=== PATIENT | female | born 1960 | race Caucasian/White ===

== ENCOUNTER 2021-11-08 14:00 | Outpatient (RCR) | payer BC, OTHER, SELFPAY | END 2021-12-05 07:56 | disposition home or self-care (01) | LOC: PT.CARL 14:00 | PROVIDERS: PCP Internal Medicine; Visit Provider Orthopaedic Surgery | DX: S83.241D Other tear of medial meniscus, current injury, right knee, subsequent encounter (principal) | CPT/HCPCS: 97010; 97014; 97033; 97035; 97110; 97163; 97164; G0283 ==

== ENCOUNTER 2021-12-02 21:02 | Emergency (ER) | payer BC, OTHER, SELFPAY ==
[2021-12-02 21:04] VITALS: BP 133/87; PULSE 84; RESP 17; TEMP 36.7; O2SAT 98; BMI 37.8
--- NOTE | 2021-12-02 21:26 | XR_ITS ---
PROCEDURE INFORMATION: Exam: XR Left Foot Exam date and time: 12/02/2021 9:29 PM Age: 61 years old Clinical indication: Pain; Foot; Left; Additional info: Twisted ankle TECHNIQUE: Imaging protocol: Radiologic exam of the Left foot. Views: 1 or 2 views. COMPARISON: No relevant prior studies available. FINDINGS: Bones/joints: Changes of prior bunionectomy. Spurring along the inferior aspect of the calcaneus. No acute fracture. Soft tissues: Normal. IMPRESSION: No acute fracture. Changes of prior bunionectomy. No overlying soft tissue swelling.
--- NOTE | 2021-12-02 21:26 | XR_ITS ---
PROCEDURE INFORMATION: Exam: XR Left Ankle Exam date and time: 12/02/2021 9:30 PM Age: 61 years old Clinical indication: Pain; Ankle; Left; Additional info: Twisted ankle TECHNIQUE: Imaging protocol: Radiologic exam of the Left ankle. Views: 1 or 2 views. COMPARISON: CR XR FOOT LT 2V 12/02/2021 9:29 PM FINDINGS: Bones/joints: Normal. Soft tissues: Normal. IMPRESSION: No acute findings.
--- NOTE | 2021-12-02 22:34 | HMH.EDLOEX ---
ED Disposition Clinical Impression: Ankle sprain and strain Sprain of foot, left Qualifiers: Encounter type: initial encounter Qualified Code(s): S93.602A - Unspecified sprain of left foot, initial encounter Disposition: Home, Self-Care Condition on Discharge: Good Instructions: DI for Ankle Sprain Additional Instructions: ice and no wt bearing and call pcp and dr morse for follow up Referrals: Diana Sifuentes MD [Primary Care Provider] - Yissel Morse DPM [Staff Physician] - - Critical Care Critical Care Time: No Attestation: On 12/02/21, the high probability of a clinically significant, sudden or life threatening deterioration of the following system(s) required my full and direct attention, intervention and personal management. The time I documented below is in addition to time spent performing reported procedures but includes the following listed in this critical care notation. Medical Decision Making - Medical Records Medical records reviewed: Yes: I reviewed the patient's medical records. - Jose Inquiry Pt receiving controlled substance: No Vital Signs: 12/02/21 21:04 Temperature 98.1 F Temperature Source Oral Pulse Rate [Right] 84 Respiratory Rate 17 Blood Pressure [Right Arm] 133/87 Blood Pressure Mean [Right Arm] 102 02 Sat by Pulse Oximetry 98 Oxygen Delivery Method Room Air - Radiology Data #1 Image(s): Ankle, Foot/Toes Image Reviewed: Yes I have reviewed radiologist's interpretation Preliminary Findings: No Fracture Seen Medical Decision Narrative: no fracture but has pain and dec rom and inability bear wt Lower Extremity Injury HPI - General Chief Complaint: Extremity Injury, Lower Stated Complaint: AO 12/02@1930@home injured L ankle Time Seen by Provider: 12/02/21 22:34 Mode of Arrival: Wheelchair Source of Information: Patient, Spouse, Medical Record Limitations: No Limitations Description of Symptoms (Recalled from ER Triage Doc. by RN): Pt c/o left foot & ankle pain. States she was walking and stepped in a hole and felt her ankle twist and pop . Peripheral pulses and [employer] are WNL. Mild swelling noted to lateral L ankle.She reports she can not bear weight with severe pain. Difficulty moving toes upward. - History of Present Illness HPI Narrative: acute injury lt foot/ankle with popping sd with swelling and inability to bear wt complaint: ankle injury, foot injury Onset (ago): hour(s) Injury: Left: ankle, foot Type of Injury: eversion Place: home Severity: moderate Exacerbating factors: weight bearing Context: walking Associated symptoms: snap/pop sensation, unable to bear weight Other symptoms: none - Related Data Home Medications Medication Instructions Recorded Confirmed Albuterol Sulfate [Albuterol 1 - 2 puff IH Q6HP PRN 12/02/21 12/02/21 Sulfate Hfa] Dulaglutide [Trulicity] 0.75 mg SQ WEEKLY 12/02/21 12/02/21 Empagliflozin [Jardiance] 25 mg PO DAILY 12/02/21 12/02/21 Fluticasone/Vilanterol [Breo 1 puff IH DAILY 12/02/21 12/02/21 Ellipta 100-25 Mcg INH] Furosemide [Furosemide 20mg Tab*] 20 mg PO DAILY 12/02/21 12/02/21 Insulin Aspart [Novolog Flexpen] 20 units SQ TID 12/02/21 12/02/21 Insulin Glargine,Hum.rec.anlog 20 unit SQ DAILY 12/02/21 12/02/21 [Basaglar Kwikpen U-100] Allergies Allergy/AdvReac Type Severity Reaction Status Date / Time liraglutide [From Saxenda] AdvReac Mild injection Verified 12/02/21 21:53 site reaction [facility] History - Hepatitis A Screen Attestation statement:: This patient has been screened for Hepatitis A risk factors. I have reviewed the patient's past medical history: Yes ROS Obtained: Yes All systems reviewed & no additional complaints - Constitutional Constitutional: Denies fever(s) - Eyes Eyes: Denies change in vision - ENT Ears, Nose, Mouth, and Throat: Denies sore throat - Cardiovascular Cardiovascular: Denies chest pain - Respiratory Respiratory: Denies s
[2021-12-02 22:51] VITALS: BP 140/85; PULSE 81; RESP 18; TEMP 36.7; O2SAT 98
== END 2021-12-02 23:04 | disposition home or self-care (01) ==
PROVIDERS: Emergency Provider Emergency Medicine; PCP Internal Medicine
DX: S93.602A Unspecified sprain of left foot, initial encounter (principal); W01.0XXA Fall on same level from slipping, tripping and stumbling without subsequent striking against object, initial encounter; Z79.4 Long term (current) use of insulin; Z79.899 Other long term (current) drug therapy; Z88.8 Allergy status to other drugs, medicaments and biological substances
CPT/HCPCS: 73600; 73620; 99283

== ENCOUNTER 2022-02-06 15:00 | Outpatient (RCR) | payer BC, OTHER, SELFPAY | END 2022-02-12 16:38 | disposition home or self-care (01) | LOC: PT.CARL 15:00 | PROVIDERS: PCP Internal Medicine; Visit Provider Orthopaedic Surgery | DX: S83.241D Other tear of medial meniscus, current injury, right knee, subsequent encounter (principal) | CPT/HCPCS: 97010; 97014; 97110; 97163; G0283 ==

== ENCOUNTER 2023-10-14 03:47 | Emergency (ER) | payer BC, OTHER, SELFPAY ==
[2023-10-14 03:49] VITALS: BP 84/65; PULSE 95; RESP 18; TEMP 36.6; O2SAT 99; BMI 31.7
--- NOTE | 2023-10-14 03:52 | PC.NURSE ---
md at bedside. supplies for eye exam at bedside
--- NOTE | 2023-10-14 03:58 | PC.NURSE ---
Eye box and mann lamp at bedside
--- NOTE | 2023-10-14 04:06 | HMH.EDGENADL ---
Discharge Plan Disposition Patient Disposition: Home, Self-Care Prescriptions Prescriptions: No Action furosemide 20 MG tablet 20 mg PO DAILY albuterol sulfate 8.5 GM HFA aerosol inhaler 1 - 2 puff IH Q6HP PRN (Reason: soa) insulin aspart U-100 100 UNIT/ML insulin pen 20 units SQ TID Patient Comments: ADMINISTER 20 UNITS UNDER THE SKIN THREE TIMES DAILY insulin glargine 100 UNIT/ML insulin pen 20 unit SQ DAILY fluticasone furoate-vilanterol 1 EACH blister with device 1 puff IH DAILY Patient Comments: INHALE 1 PUFF BY MOUTH EVERY DAY empagliflozin 25 MG tablet 25 mg PO DAILY Patient Comments: TAKE 1 TABLET BY MOUTH DAILY. MAKE AN APPOINTMENT. FOR FURTHER REFILLS. 09/24/2021 dulaglutide 0.75 MG/0.5 ML pen injector 0.75 mg SQ WEEKLY Referrals Follow up/Referrals: Diana Sifuentes MD [Primary Care Provider] - See instructions Activity Restrictions/Add. Instructions Additional Instructions/Restrictions: Please use erythromycin ointment as prescribed. Please follow-up with your eye doctor. Clinical Impressions Clinical Impression: Conjunctivitis Qualifiers: Conjunctivitis type: acute Laterality: left Discharge ED Provider: Vaibhav aMrinelli General Adult HPI General Chief complaint: Eye Problems Stated complaint: blurred vision left eye,treated for conjuctivitis Time Seen by Provider: 10/14/23 03:50 Mode of Arrival: Ambulatory Source of Information: Patient Limitations: No Limitations Description of Symptoms (Recalled from ER Triage Doc. by RN): Pt dx with conjunctivitis via telehealth yesterday, given abx for eye, advised to go to ER if any new or worsening symptoms occurred. Pt woke up at approx 130 and had pain and blurry vision in her left eye. History of Present Illness HPI narrative: 63-year-old female with history of diabetes, hypothyroidism, presents with left eye pain and blurry vision. She reports that the eye redness and pain started a couple of days ago. She noticed some irritation, felt like something was in it, it has been slowly worsening. Tonight she awoke and noticed that her vision was blurry, this is new for her. She denies any history of significant eye infections, trauma, glaucoma etc. She has a eye doctor but has not been able to go see them yet. She was seen by her regular doctor via telehealth appointment and was given eyedrops yesterday. She has been taking them as prescribed. Related Data Home Medications Medication Instructions Recorded Confirmed albuterol sulfate 90 mcg/actuation 1 - 2 puff inhalation Q6HP PRN soa 12/02/21 12/02/21 aerosol inhaler dulaglutide 0.75 mg/0.5 mL 0.75 mg SQ WEEKLY Diabetes 12/02/21 12/02/21 subcutaneous pen injector empagliflozin 25 mg tablet 25 mg PO DAILY Diabetes 12/02/21 12/02/21 fluticasone furoate 100 1 puff inhalation DAILY soa 12/02/21 12/02/21 mcg-vilanterol 25 mcg/dose inhalation powder furosemide 20 mg tablet 20 mg PO DAILY Fluid 12/02/21 12/02/21 insulin aspart U-100 100 unit/mL 20 units SQ TID Diabetes 12/02/21 12/02/21 (3 mL) subcutaneous pen insulin glargine 100 unit/mL (3 20 unit SQ DAILY Diabetes 12/02/21 12/02/21 mL) subcutaneous pen Allergies Allergy/AdvReac Type Severity Reaction Status Date / Time liraglutide [From Saxenda] AdvReac Mild injection Verified 12/02/21 21:53 site reaction [facility] Disclaimer: The information contained in this section may have been updated after the patient was seen, as this information can be updated by other users. Social History Smoking Status: Never smoker alcohol intake: never current occupational status: employed Travel in the last 8 weeks: None ROS Obtained: Yes All systems reviewed & no additional complaints except as documented Physical Exam General General appearance: alert and in no apparent distress Head Head exam: atraumatic and normocephalic Eye Eye exam: Present PERRL, EOMI and conjunctival redness ENT ENT exam: Present normal oropharynx and normal external ear exam Neck Neck exam: Present normal inspection and full ROM Chest Chest inspection: Present normal inspection and symmetric chest wall rise; Absent tenderness Respiratory Respiratory exam: Present normal lung sounds bilaterally; Absent respiratory distress Cardiovascular Cardiovascular exam: Present regular rate and normal rhythm Abdominal Exam Abdominal exam: Present soft; Absent distention, tenderness or guarding Extremities Exam Extremities exam: Present normal inspection; Absent edema or joint swelling Back Exam Back exam: Present normal inspection; Absent tenderness Neurological Exam Neurological exam: Present alert and oriented X3; Absent motor sensory deficit Psychiatric Psychiatric exam: Present normal affect and normal mood Skin Skin exam: Present warm, dry and normal color Lymphatic Lymphatic Findings: no adenopathy Medical Decision Making Medical Records Medical records reviewed: Yes I reviewed the patient's medical records. Jose Inquiry Pt receiving controlled substance: No Jose was queried for this patient: No Vital Signs: 10/14/23 03:49 10/14/23 04:11 Temperature 97.8 F 97.8 F Temperature Source Oral Oral Pulse Rate 95 H Pulse Rate [Left] 95 H Respiratory Rate 18 16 Blood Pressure 84/65 L Blood Pressure [Right Arm] 84/65 L Blood Pressure Mean [Right Arm] 71 Blood Pressure Position [Right Arm] Sitting 02 Sat by Pulse Oximetry 99 Oxygen Delivery Method Room Air Room Air Lab Data Lab results reviewed: Yes I reviewed the patient's lab results. Medical Decision Narrative: 63-year-old female with history of diabetes who presents with 2 days of eye redness, pain, now with some blurry vision. History was obtained interactive discussion with patient. On arrival, patient is [afebrile, hemodynamically stable, satting appropriately, alert, oriented x4, GCS 15], moving all extremities spontaneously. Full physical exam performed and significant for left eye conjunctival injection, pupils equal round reactive to light, extraocular movements intact, no surrounding cellulitis. Differential diagnosis includes but limited to viral conjunctivitis, bacterial conjunctivitis, allergic reaction, glaucoma, vitreous/retinal pathology. Fluorescein staining was performed and shows no evidence of corneal ulcer or abrasion or infectious process. Anjum-Pen was utilized, intraocular pressures were 10 mmHg on the right, 8 mmHg on the left, both within normal limits. Limited ocular ultrasound was performed by me and shows no evidence of retinal detachment, vitreous detachment, vitreous hemorrhage. At this time, presentation seems most consistent with conjunctivitis. I had extensive discussion with patient regarding her presentation. Recommend she continue taking the eyedrops as previously prescribed, she was also given erythromycin ointment. She will call and follow-up with her eye doctor tomorrow. She was discharged in stable condition. Procedures Risk/Benefits of Procedure(s) Were Explained: Yes Limited Ultrasound Indication:: Limited ocular ultrasound Indication: Eye pain, eye redness, blurry vision Identified structures: -Left eye Findings: Left eye: Retina: Normal Lens: Normal Vitreous body: Anechoic Optic nerve sheath diameter: Grossly normal Foreign body: Absent Impression: Left eye: Normal ocular ultrasound Images were saved to permanent archive The study was technically adequate CPT 51488-51 This study was performed by me, and I personally interpreted all images/videos. Critical Care Critical Care Time Critical Care Time: No
[2023-10-14 04:11] VITALS: BP 84/65; PULSE 95; RESP 16; TEMP 36.6; O2SAT 98
== END 2023-10-14 04:13 | disposition home or self-care (01) ==
PROVIDERS: Emergency Provider Emergency Medicine; PCP Internal Medicine
DX: H57.12 Ocular pain, left eye (principal); H10.32 Unspecified acute conjunctivitis, left eye; E11.9 Type 2 diabetes mellitus without complications; E03.9 Hypothyroidism, unspecified; Z79.4 Long term (current) use of insulin; Z79.84 Long term (current) use of oral hypoglycemic drugs; Z79.85 Long-term (current) use of injectable non-insulin antidiabetic drugs
CPT/HCPCS: 99283